=== PATIENT | male | born 1960 | race Caucasian/White ===

== ENCOUNTER 2024-01-29 07:44 | Emergency (ER) | payer MEDICARE ==
[2024-01-29] MEDS ORDERED: Ketorolac Tromethamine 30 MG (1 mL) VIAL ONE (08:15)
[2024-01-29 08:23] LABS: #Basophils 0.02 10x3/uL (0.0-0.2); #Eosinophils 0.03 10x3/uL (0.0-0.5); #Monocytes 0.92 10x3/uL (0.0-1.1); #Neutrophils 11.16 10x3/uL (1.5-8.4); %Basophils 0.1 % (0.0-2.0); %Eosinophils 0.2 % (0.0-6.0); %Lymphocytes 12.7 % (18.0-47.0); %Monocytes 6.5 % (0.0-10.0); %Neutrophils 78.7 % (40.0-75.0); Hematocrit 40.7 % (38.8-50.0); Hemoglobin 12.8 g/dL (13.5-17.5); Mean Corpuscular HGB CONC 31.4 g/dL (32.0-36.0); Mean Corpuscular Hemoglobin 31.6 pg (27.0-33.0); Mean Corpuscular Volume 100.5 fL (81.2-95.1); Mean Platelet Volume 8.9 fL (7.4-10.4); Platelet Count 271 10x3/uL (150-450); Red Blood Cell (RBC) Count 4.05 10x6/uL (4.32-5.72); White Blood Cell (WBC) Count 14.2 10x3/uL (3.5-10.5)
[2024-01-29] MEDS ORDERED: Famotidine/PF 20 mg/2ml Vial ONE (08:24)
[2024-01-29] MEDS ORDERED: diphenhydrAMINE 50 MG/ML VIAL ONE (08:24)
[2024-01-29] MEDS ORDERED: methylPREDNISolone Sod Succ 40 MG VIAL ONE (08:24)
[2024-01-29 08:37] LABS: ALT (SGPT) 28 U/L (8-55); AST (SGOT) 16 U/L (5-34); Albumin 3.3 g/dL (3.4-4.8); Alkaline Phosphatase 68 U/L (40-110); Anion Gap 13 mmol/L (10-20); BUN (Urea Nitrogen) 23 mg/dL (8.4-25.7); Bilirubin, Total 0.3 mg/dL (0.2-1.2); Calc. Creatinine Clearance 0 mL/min (70-130); Calcium 9.4 mg/dL (7.8-10.44); Carbon Dioxide 29 mmol/L (23-31); Chloride 104 mmol/L (98-107); Estimated GFR 98; Globulin 2.7 g/dL (2.4-3.5); Glucose 93 mg/dL (80-115); Lipase 46 U/L (8-78); Potassium 3.6 mmol/L (3.5-5.1); Sodium 142 mmol/L (136-145)
[2024-01-29 09:44] LABS: Bilirubin Neg (Negative); Blood, Urine Negative (Negative); Clarity Clear (Clear); Glucose, Urine (Dipstick) Normal (Negative); Ketone, Urine Negative (Negative); Leukocyte Negative (Negative); Nitrite Negative (Negative); Protein, Urine (Dipstick) 30 mg/dl (Neg-Trace); Urobilinogen Normal mg/dL (Less than 2)
[2024-01-29 09:59] LABS: Bacteria/HPF None Seen HPF (None Seen); CAUTI Indications for Culture Pelvic or flank pain; Calcium Oxalate Crystals 2+ HPF (None Seen); RBC/HPF None Seen HPF (0-3); Squamous Epithelial 0-3 HPF (0-3); WBC/HPF None Seen HPF (0-3)
[2024-01-29 10:00] LABS: Urine Culture Reflex No No
== END 2024-01-29 11:05 | disposition home or self-care (01) ==
LOC: CSHERS 07:44
DX: R10.9 Unspecified abdominal pain (principal); N20.0 Calculus of kidney; I10 Essential (primary) hypertension; Z86.69 Personal history of other diseases of the nervous system and sense organs; Z79.899 Other long term (current) drug therapy
CPT/HCPCS: 74177; 80053; 81001; 83690; 85025; J1200; J1885; J2919; J3490; 96374; 96375

== ENCOUNTER 2024-01-30 11:30 | Emergency (ER) | payer MEDICARE ==
[2024-01-30 13:34] LABS: #Basophils 0.01 10x3/uL (0.0-0.2); #Eosinophils 0.01 10x3/uL (0.0-0.5); #Neutrophils 11.92 10x3/uL (1.5-8.4); %Basophils 0.1 % (0.0-2.0); %Eosinophils 0.1 % (0.0-6.0); %Lymphocytes 3.9 % (18.0-47.0); %Monocytes 2.3 % (0.0-10.0); %Neutrophils 92.2 % (40.0-75.0); Hematocrit 41.2 % (38.8-50.0); Hemoglobin 12.9 g/dL (13.5-17.5); Mean Corpuscular HGB CONC 31.3 g/dL (32.0-36.0); Mean Corpuscular Hemoglobin 31.7 pg (27.0-33.0); Mean Corpuscular Volume 101.2 fL (81.2-95.1); Mean Platelet Volume 9.2 fL (7.4-10.4); Platelet Count 271 10x3/uL (150-450); RBC Distribution Width 13.1 % (11.5-14.5); Red Blood Cell (RBC) Count 4.07 10x6/uL (4.32-5.72); White Blood Cell (WBC) Count 12.9 10x3/uL (3.5-10.5)
[2024-01-30 13:42] LABS: ALT (SGPT) 29 U/L (8-55); AST (SGOT) 18 U/L (5-34); Albumin 3.3 g/dL (3.4-4.8); Alkaline Phosphatase 64 U/L (40-110); Anion Gap 12 mmol/L (10-20); BUN (Urea Nitrogen) 24 mg/dL (8.4-25.7); Bilirubin, Total 0.3 mg/dL (0.2-1.2); Calc. Creatinine Clearance 0 mL/min (70-130); Calcium 9.1 mg/dL (7.8-10.44); Carbon Dioxide 30 mmol/L (23-31); Chloride 104 mmol/L (98-107); Estimated GFR 98; Globulin 2.7 g/dL (2.4-3.5); Glucose 136 mg/dL (80-115); Potassium 4.9 mmol/L (3.5-5.1); Sodium 141 mmol/L (136-145)
[2024-01-30] MEDS ORDERED: Ketorolac Tromethamine 30 MG (1 mL) VIAL ONE (14:00)
[2024-01-30 14:54] LABS: Bilirubin Neg (Negative); Blood, Urine Negative (Negative); Clarity Clear (Clear); Glucose, Urine (Dipstick) Normal (Negative); Ketone, Urine Negative (Negative); Leukocyte Negative (Negative); Nitrite Negative (Negative); Protein, Urine (Dipstick) Negative (Neg-Trace); Urobilinogen Normal mg/dL (Less than 2); pH, Urine 6.5 (5.0-9.0)
[2024-01-30] MEDS ORDERED: Dexamethasone 10 MG/ML VIAL ONE (15:02)
[2024-01-30 15:04] LABS: Bacteria/HPF None Seen HPF (None Seen); CAUTI Indications for Culture Pelvic or flank pain; RBC/HPF None Seen HPF (0-3); Squamous Epithelial 0-3 HPF (0-3); WBC/HPF None Seen HPF (0-3)
[2024-01-30 15:05] LABS: Urine Culture Reflex No No
== END 2024-01-30 14:35 | disposition home or self-care (01) ==
LOC: CSHERS 11:30
DX: N13.2 Hydronephrosis with renal and ureteral calculous obstruction (principal); I10 Essential (primary) hypertension; Z95.0 Presence of cardiac pacemaker
CPT/HCPCS: 74176; 80053; 81001; 85025; J1100; J1885; 96372

== ENCOUNTER 2024-02-16 02:59 | Emergency (ER) | payer MEDICARE ==
[2024-02-16] MEDS ORDERED: HYDROcodone/Acetaminophen 5/325 mg Tablet ONE (03:16)
[2024-02-16] MEDS ORDERED: Dexamethasone 10 MG/ML VIAL ONE (03:16)
== END 2024-02-16 03:30 | disposition home or self-care (01) ==
LOC: CSHERS 02:59
DX: L03.113 Cellulitis of right upper limb (principal); M54.16 Radiculopathy, lumbar region; I10 Essential (primary) hypertension; Z79.899 Other long term (current) drug therapy
CPT/HCPCS: 96372; 99283; J1100

== ENCOUNTER 2024-02-18 11:50 | Emergency (ER) | payer MEDICARE ==
[2024-02-18 12:47] LABS: Hematocrit 41.5 % (38.8-50.0); Hemoglobin 13.2 g/dL (13.5-17.5); Mean Corpuscular HGB CONC 31.8 g/dL (32.0-36.0); Mean Corpuscular Hemoglobin 30.9 pg (27.0-33.0); Mean Corpuscular Volume 97.2 fL (81.2-95.1); Mean Platelet Volume 9.1 fL (7.4-10.4); Platelet Count 261 10x3/uL (150-450); RBC Distribution Width 13.4 % (11.5-14.5); Red Blood Cell (RBC) Count 4.27 10x6/uL (4.32-5.72); White Blood Cell (WBC) Count 23.9 10x3/uL (3.5-10.5)
[2024-02-18 12:49] LABS: MDiff Complete? YES
[2024-02-18 13:05] LABS: ALT (SGPT) 42 U/L (8-55); AST (SGOT) 24 U/L (5-34); Albumin 2.3 g/dL (3.4-4.8); Alkaline Phosphatase 71 U/L (40-110); Anion Gap 13 mmol/L (10-20); BUN (Urea Nitrogen) 26 mg/dL (8.4-25.7); Bilirubin, Total 0.4 mg/dL (0.2-1.2); Calc. Creatinine Clearance 0 mL/min (70-130); Calcium 8.8 mg/dL (7.8-10.44); Carbon Dioxide 35 mmol/L (23-31); Chloride 97 mmol/L (98-107); Estimated GFR 97; Globulin 2.3 g/dL (2.4-3.5); Glucose 136 mg/dL (80-115); Potassium 4.4 mmol/L (3.5-5.1); Protein, Total 4.6 g/dL (5.8-8.1); Sodium 141 mmol/L (136-145)
[2024-02-18 13:29] LABS: Band 3 % (5-11); Lymphocytes 3 % (21-51); Monocytes 7 % (0-10); Neutrophil 85 % (42-75); Reactive Lymphocytes 2 % (0-10)
[2024-02-18 13:30] LABS: Platelet Adequacy Comment Appears Adequate; RBC Morph Comment Within Normal Limits
[2024-02-18] MEDS ORDERED: Furosemide 40 MG (4 mL) VIAL ONE (14:47)
== END 2024-02-18 19:56 | disposition short-term general hospital (02) ==
LOC: CSHERS 11:50
DX: R06.00 Dyspnea, unspecified (principal); E87.70 Fluid overload, unspecified
CPT/HCPCS: 71045; 80053; 83880; 84484; 85025; 93005; J1940; 36415